=== PATIENT | male | born 1985 | race Caucasian/White ===

== ENCOUNTER 2016-08-13 15:27 | Emergency (ER) | payer SELFPAY ==
[2016-08-13] MEDS ORDERED: MAALOX/LIDO2%VISC/SIMETHICONE 40 ML BOT ONE (17:06)
[2016-08-13 17:18] LABS: SPECIFIC GRAVITY 1.025 (1.001-1.030); URINE BILIRUBIN NEGATIVE (NEGATIVE); URINE BLOOD NEGATIVE (NEGATIVE); URINE GLUCOSE (UA) NEGATIVE (NEGATIVE); URINE LEUKOCYTE ESTERASE NEGATIVE (NEGATIVE); URINE NITRITE NEGATIVE (NEGATIVE); URINE PROTEIN NEGATIVE (NEGATIVE); URINE UROBILINOGEN NORMAL (0-1 mg/dl)
[2016-08-13 17:23] LABS: URINE APPEARANCE CLEAR; URINE COLOR YELLOW
[2016-08-13 17:24] LABS: ABSOLUTE NEUTROPHIL COUNT 4.2 K/mm3 (1.8-7.7); BASO % 0.7 % (0.2-1.0); EOS # 0.1 (0.0-0.5); EOS % 1.2 % (0.9-2.9); HEMATOCRIT 42.2 % (32.0-52.0); HEMOGLOBIN 14.2 gm/l (14.0-18.0); IMM NEUT% 0.2 % (0-1); LYMPH # 0.9 (1.0-4.8); LYMPH % 15.1 % (15-45); MEAN CELL VOLUME 89.6 fl (80.0-94.0); MEAN CORPUSCULAR HEMOGLOBIN 30.1 pg (27.0-31.0); MEAN CORPUSCULAR HGB CONC 33.6 g/dl (33.0-37.0); MEAN PLATELET VOLUME 10.2 fl (7.4-10.4); MONO # 0.5 (0.0-0.8); MONO % 9.3 % (4-12); NEUT % 73.5 % (43-75); PLATELET COUNT 143 K/mm3 (130-400); RED CELL DISTRIBUTION WIDTH 13.7 % (11.5-14.5)
--- NOTE | 2016-08-13 17:28 | RAD ---
Exam: Two-view chest COMPARISON: None INDICATION: Epigastric pain since 08/08/2016. Vomiting today. FINDINGS: PA and lateral views of the chest were obtained. Cardiac silhouette is within normal limits. Lungs are well-inflated. There is no focal airspace disease or pleural effusion. Bones of the chest wall within normal limits. IMPRESSION: Negative two-view chest.
[2016-08-13 17:39] LABS: ALB/GLOB RATIO 1.5 (>1.0); ALBUMIN 3.6 gm/dL (3.5-5.7); CALCIUM 8.4 mg/dL (8.6-10.3)
== END 2016-08-13 18:22 | disposition home or self-care (01) ==
LOC: ED 15:27
DX: R10.13 Epigastric pain (principal)
CPT/HCPCS: 83690; 85025; 80053; 81003; 71020; 99283; 93005; 99284; A9270